=== PATIENT | male | born 1950 | race Caucasian/White ===

== ENCOUNTER 2019-01-31 08:02 | Emergency (ER) | payer MEDICARE ==
[~2019-01-31] VITALS: Ht 185.4 cm; Wt 100.0 kg
[2019-01-31] MEDS ORDERED: bacitracin 15gm ointment TP ONE (09:05)
[2019-01-31] MEDS ORDERED: TETanus/Pertussis (Acell)/Diphther VAC/PF (Tdap-Adult) 0.5ml syringe IM ONE (09:05)
[2019-01-31 09:33] VITALS: BP 123/87
== END 2019-01-31 09:35 | disposition home or self-care (01) ==
LOC: ER 08:04
DX: S01.21XA Laceration without foreign body of nose, initial encounter (principal); W18.09XA Striking against other object with subsequent fall, initial encounter; Y93.39 Activity, other involving climbing, rappelling and jumping off; Y92.89 Other specified places as the place of occurrence of the external cause; Y99.8 Other external cause status
CPT/HCPCS: 90471; 99284